=== PATIENT | female | born 1950 | race Caucasian/White ===

== ENCOUNTER 2018-03-13 19:47 | Emergency (ER) | payer MEDICARE, OTHER, SELFPAY ==
[2018-03-13 19:51] VITALS: BP 138/79; PULSE 101; RESP 16; TEMP 37.2; O2SAT 95; BMI 24.9
[2018-03-13] MEDS: PROPARACAINE 0.5% OPHTH SOL 1 DROPS EYE-RIGHT (20:36)
--- NOTE | 2018-03-13 20:44 | ED_ITS ---
HPI - Eye Problem <KAROL Dewey - Last Filed: 03/13/18 22:18> General Chief complaint: Eye Problems Stated complaint: POKED IN THE RIGHT EYE WITH A STICK Time Seen by Provider: 03/13/18 19:54 History of Present Illness HPI Narrative: [age] year old female here for complaint of irritation to her right eye. She states that she was out in the garden today when a piece of line grazed her right eye when it popped into her face. She states that she denies any visual changes. She states her last tetanus was over 5 years ago. She denies any other injuries. No other concerns. chief complaint: eye pain Related Data Previous Rx's Medication Instructions Recorded erythromycin 0.5 inch EYE-RIGHT QID 7 Days #1 03/13/18 gram Allergies Allergy/AdvReac Type Severity Reaction Status Date / Time ofloxacin Allergy Verified 03/13/18 19:57 Review of Systems <KAROL Dewey - Last Filed: 03/13/18 22:18> Constitutional Denies chills, Denies fever(s), Denies lethargy and Denies weakness Eyes Reports irritation Comments: Irritation right ENT Ears, Nose, Mouth, and Throat: Denies change in voice, Denies neck pain and Denies sore throat Cardiovascular Denies chest pain, Denies irregular heart rhythm, Denies lightheadedness, Denies palpitations, Denies dyspnea, Denies dyspnea on exertion and Denies orthopnea Respiratory Denies cough, Denies dyspnea, Denies dyspnea on exertion and Denies wheezing Gastrointestinal Gastrointestinal: Denies abdominal pain, Denies change in bowel habits, Denies diarrhea, Denies nausea and Denies vomiting Genitourinary Denies hematuria, Denies flank pain, Denies urinary incontinence and Denies urinary urgency Musculoskeletal Denies neck pain Integumentary/Breasts Denies pruritus, Denies erythema, Denies rash and Denies wounds Neurologic Denies confusion and Denies weakness Psychiatric Denies anxiety, Denies confusion, Denies depression, Denies homicidal ideation and Denies suicidal ideation Endocrine Denies palpitations Hematologic/Lymphatic Denies easy bruising Allergic/Immunologic Denies wheezing Exam <KAROL Dewey - Last Filed: 03/13/18 22:18> Initial Vital Signs Initial Vital Signs: Vital Signs Temperature 99.0 F 03/13/18 19:51 Pulse Rate 101 H 03/13/18 19:51 Respiratory Rate 16 03/13/18 19:51 Blood Pressure 138/79 H 03/13/18 19:51 Pulse Oximetry 95 03/13/18 19:51 Const General: cooperative and well developed Nutritional Appearance: well nourished Orientation: alert, awake, oriented x3 and not confused [facility] Mouth: oral mucosae normal and moist mucous membranes Eyes Eyelids: eyelids normal Conjunctivae: conjunctival abnormality (Injected right) right Cornea: corneas abnormal (Slight corneal abrasion to 2:00 position on the right eye) on the right and fluorescein used Pupils: PERRL EOM: EOM intact bilaterally Other: No foreign body seen Resp Effort & Inspection: normal respiratory effort, able to speak in complete sentences, no respiratory distress and no use of accessory muscles Auscultation: clear to auscultation bilaterally, no rales, no rhonchi and no wheezes Cardio Rate: regular rate Rhythm: regular rhythm Heart Sounds: no click, no gallops, no murmurs and no rubs Skin General: no rashes or lesions noted, No jaundice and No petechiae <Otf Ricci DO - Last Filed: 03/13/18 22:46> Initial Vital Signs Initial Vital Signs: Vital Signs Temperature 99.0 F 03/13/18 19:51 Pulse Rate 101 H 03/13/18 19:51 Respiratory Rate 16 03/13/18 19:51 Blood Pressure 138/79 H 03/13/18 19:51 Pulse Oximetry 95 03/13/18 19:51 Course <KAROL Dewey - Last Filed: 03/13/18 22:18> Orders Ordered: Discontinued Medications Diphtheria/Tetanus/Acell Pertussis (Adacel) 0.5 ml IM .ONCE ONE Stop: 03/13/18 20:41 Last Admin: 03/13/18 20:49 Dose: 0.5 ml Erythromycin (Erythromycin Ophth Oint) 1 applic EYE-RIGHT NOW ONE Stop: 03/13/18 20:46 Last Admin: 03/13/18 20:49 Dose: 1 applic Proparacaine HCl (Parcaine 0.5% Ophth Ayaka) 1 drops EYE-RIGHT NOW ONE Stop: 03/13/18 20:34 Last Admin: 03/13/18 20:36 Dose: 1 drop Vital Signs - 8 hr 03/13/18 19:51 03/13/18 20:58 Temperature 99.0 F 98.3 F Pulse Rate 101 H 88 Respiratory Rate 16 16 Blood Pressure 138/79 H Blood Pressure [Left Arm] 129/80 H Pulse Oximetry 95 95 <Otf Ricci DO - Last Filed: 03/13/18 22:46> Orders Ordered: Discontinued Medications Diphtheria/Tetanus/Acell Pertussis (Adacel) 0.5 ml IM .ONCE ONE Stop: 03/13/18 20:41 Last Admin: 03/13/18 20:49 Dose: 0.5 ml Erythromycin (Erythromycin Ophth Oint) 1 applic EYE-RIGHT NOW ONE Stop: 03/13/18 20:46 Last Admin: 03/13/18 20:49 Dose: 1 applic Proparacaine HCl (Parcaine 0.5% Ophth Ayaka) 1 drops EYE-RIGHT NOW ONE Stop: 03/13/18 20:34 Last Admin: 03/13/18 20:36 Dose: 1 drop Vital Signs - 8 hr 03/13/18 19:51 03/13/18 20:58 Temperature 99.0 F 98.3 F Pulse Rate 101 H 88 Respiratory Rate 16 16 Blood Pressure 138/79 H Blood Pressure [Left Arm] 129/80 H Pulse Oximetry 95 95 MDM - Eye Problem <KAROL Dewey - Last Filed: 03/13/18 22:18> MDM Narrative Medical decision making narrative: No foreign body appreciated in the right eye. Fluorescein exam shows slight corneal abrasion to the right eye. She is placed on erythromycin ointment to prevent infection. [id number] Tylenol Motrin as needed for any discomfort. Follow up with primary care provider later this week for re-evaluation. For any worsening symptoms return to the emergency room. Tetanus was updated in the emergency room today. Discharge Plan Departure Patient Disposition: Home, Self-Care Clinical Impression: Corneal abrasion Discharge Date/Time: 03/13/18 21:02 Interventions: ED Discharge Assessment Last Done: 03/13/18 21:01 Instructions: DI for Corneal Abrasion Activity Restrictions/Additional Instructions: No foreign body was seen in the right eye. Fluorescein exam shows slight corneal abrasion to the right eye. He has been placed on antibiotic ointment to prevent infection use as direct. [id number] Tylenol Motrin as needed for any discomfort. Follow up with primary care provider later this week for re -evaluation. For any worsening symptoms return to the emergency room. Tetanus was updated in the emergency room today. Prescriptions: New erythromycin 5 mg/gram (0.5 %) ointment 0.5 inch EYE-RIGHT QID 7 Days Qty: 1 RF: 0 Referrals: [facility] [Provider Group] <Otf Ricci DO - Last Filed: 03/13/18 22:46> Cosign ED Attending Linda Attestation: I was immediately available in the department for consultation. Documentation has been reviewed. I agree with assessment and plan.
[2018-03-13] MEDS: TET,DIPH,PERTUSS(ACELL),VAC/PF 0.5 ML SYRINGE IM (20:49)
[2018-03-13] MEDS: ERYTHROMYCIN OPHTH 1 GM OINT 1 APPLIC EYE-RIGHT (20:49)
--- NOTE | 2018-03-13 20:55 | PC.NURSE ---
Visual acuity performed by [employer] staff, results reviewed. Pt medicated per NOV. Awaiting D/C.
[2018-03-13 20:58] VITALS: BP 129/80; PULSE 88; RESP 16; TEMP 36.8; O2SAT 95
== END 2018-03-13 21:02 | disposition home or self-care (01) ==
PROVIDERS: Emergency Provider Nurse Practitioner Family
DX: S05.01XA Injury of conjunctiva and corneal abrasion without foreign body, right eye, initial encounter (principal)
CPT/HCPCS: 90471; 99283; 90715

== ENCOUNTER 2022-12-29 11:40 | Day surgery (SDC) | payer MEDICARE, OTHER, SELFPAY ==
[2022-12-29 12:22] VITALS: BP 130/84; PULSE 84; RESP 16; TEMP 36.6; O2SAT 100
--- NOTE | 2022-12-29 12:48 | PM.HP.1 ---
History of Present Illness History of Present Illness Date Patient Seen: 12/29/22 Time Patient Seen: 12:49 Chief complaint: Dx Colonoscopy Narrative: Reports for colon cancer screening. Patient states that her mom had colon polyps. The patient's last colonoscopy was some 10 years ago. [facility] Social History household members: spouse Smoking Status: Never smoker alcohol intake: current Meds Home Medications and Allergies Home Medications Medication Instructions Recorded Confirmed Type amitriptyline 25 mg tablet 25 mg PO BEDTIME 12/29/22 12/29/22 History levothyroxine 88 mcg tablet 88 mcg PO 1XD 12/29/22 12/29/22 History valacyclovir 500 mg tablet 500 mg PO 1XD 12/29/22 12/29/22 History Allergies Allergy/AdvReac Type Severity Reaction Status Date / Time ofloxacin Allergy Verified 12/29/22 12:16 Review of Systems Review of Systems ROS: Yes All systems reviewed with the patient and are negative except as otherwise documented Exam Vital Signs (past 8 hours): - 12/29/22 12:22 Temperature 97.8 F Pulse Rate 84 Respiratory Rate 16 Blood Pressure 130/84 Pulse Oximetry 100 Oxygen Delivery Method Room Air Oxygen Delivery Method Room Air Const General: cooperative HENMT Head: normal to inspection Eyes General: appearance normal, both eyes and all related structures Neck Neck: normal visual inspection Chest Chest: normal inspection of the chest Resp Effort & Inspection: normal respiratory effort Cardio Rate: regular rate GI Inspection: normal to inspection Skin General: no rashes or lesions noted Neuro General: patient alert and patient awake Extrem General: normal to inspection and no pedal edema Psych Appearance: grossly normal Assessment & Plan Assessment & Plan narrative: 72-year-old female reports for colon cancer screening. Colonoscopy is pursued today.
--- NOTE | 2022-12-29 12:49 | PM.PREOP ---
Pre-operative Note Interval Note History & Physical reviewed/Exam performed by Physician: Yes Changes to H&P: No ASA Class (for procedural sedation): II
[2022-12-29] MEDS: LACTATED RINGERS 1,000 ML 100 ML IV (13:10)
[2022-12-29 13:46] VITALS: BP 104/64; PULSE 93; RESP 16; TEMP 36.8; O2SAT 97
--- NOTE | 2022-12-29 13:46 | PM.OP.COLON ---
Operative Date/Time/Diagnoses Date of procedure: 12/29/22 Time of procedure: 13:46 Pre-op diagnosis: Colon cancer screening Procedure & Clinicians Study performed: Colonoscopy Same procedure as scheduled: Yes Indications: Colon cancer screening Surgeon: Antony Cardenas Procedure Notes SCOAP/Timeout: Done Procedure in detail: After the risks and benefits were explained, written and verbal informed consent was obtained. The patient was brought into the procedure room and placed into the left lateral decubitus position. Please see anesthesia notes for sedation details. Digital rectal examination was accomplished. The scope was introduced into the patient and advanced under direct visualization to the cecum as identified by the appendiceal orifice and ileocecal valve. The scope was slowly withdrawn to carefully examine the mucosa for any defects or lesions. Comprehensive imaging was accomplished throughout the rectum including the dentate line. The colon was decompressed, the scope was then removed from the patient who tolerated the procedure well. Pediatric colonoscope Bowel prep adequate Scope withdrawal time: 7 minutes Sedation minutes: 25 Specimen(s): none sent Complications: none Impression: The patient had an extremely tortuous left colon navigation was very difficult. No significant polyps mass lesions or inflammatory features identified throughout. Grade 2 internal hemorrhoids were noted. Endoscopic diagnosis 1. Tortuous colon 2. Hemorrhoids Post-procedure Plan for aftercare: Follow up in primary care as before. Disposition: PACU
[2022-12-29 13:53] VITALS: BP 98/56; PULSE 94; RESP 21; O2SAT 99
[2022-12-29 13:58] VITALS: BP 136/72; PULSE 94; RESP 20; O2SAT 98
[2022-12-29 14:03] VITALS: BP 121/75; PULSE 93; RESP 16; O2SAT 99
== END 2022-12-29 14:15 | disposition home or self-care (01) ==
PROVIDERS: PCP Student in an Organized Health Care Education/Training Program; Referring Provider Internal Medicine Gastroenterology; Visit Provider Internal Medicine Gastroenterology
PROC: 0DJD8ZZ Inspection of Lower Intestinal Tract, Via Natural or Artificial Opening Endoscopic (ICD-10-PCS; CPT 45378; principal; 2022-12-29 13:00)
DX: Z12.11 Encounter for screening for malignant neoplasm of colon (principal); Z20.822 Contact with and (suspected) exposure to COVID-19; K64.1 Second degree hemorrhoids
CPT/HCPCS: G0121; C9803